=== PATIENT | male | born 2000 | race Caucasian/White ===

== ENCOUNTER 2023-03-10 17:10 | Emergency (ER) | payer OTHER ==
[2023-03-10] MEDS ORDERED: Ibuprofen 200 MG TAB ONE (22:06)
== END 2023-03-10 23:18 | disposition home or self-care (01) ==
LOC: CSHERS 17:10
DX: J02.9 Acute pharyngitis, unspecified (principal); B34.9 Viral infection, unspecified
CPT/HCPCS: 87081; 87430; 99283